=== PATIENT | male | born 1995 | race American Indian/Alaskan Native ===

== ENCOUNTER 2020-03-29 11:06 | Emergency (ER) | payer OTHER ==
[2020-03-29 11:19] VITALS: BP 144/82; PULSE 97
--- NOTE | 2020-03-29 11:36 | EDM.PDOC ---
<Johanny Velazquez - Last Filed: 03/29/20 11:41> ED HPI GENERAL MEDICAL PROBLEM - General Chief Complaint: Chest Pain Stated Complaint: INJURY ON RIBS, RIGHT SIDE Time Seen by Provider: 03/29/20 11:25 Source of Information: Reports: Patient, RN, RN Notes Reviewed History Limitations: Reports: No Limitations - History of Present Illness INITIAL COMMENTS - FREE TEXT/NARRATIVE: pt to ER ambulatory with c/o left rib pain. states he fell onto stairs 3 days ago, which initially knocked the wind out of him. rates pain today 10/14. states he has been taking OTC tylenol without relief. reports after intial injury that he did notice blood in his urine on one occasion. reports that the pain in his ribs causes his pain with a deep breath and he will hear a pop at times. denies PMH/PSH. denies recent illness, fever, n/v/d. Onset Date: 03/26/20 Right Chest Pain Score (Numeric/FACES): 7 - Related Data Allergies Allergy/AdvReac Type Severity Reaction Status Date / Time Penicillins Allergy Cannot Verified 03/29/20 11:19 Remember Home Meds: Home Meds . [No Known Home Meds] 12/31/14 [History] Past Medical History HEENT History: Reports: None Cardiovascular History: Reports: None Respiratory History: Reports: None Gastrointestinal History: Reports: None Genitourinary History: Reports: None Musculoskeletal History: Reports: None Neurological History: Reports: None Psychiatric History: Reports: None Endocrine/Metabolic History: Reports: None Hematologic History: Reports: None Immunologic History: Reports: None Oncologic (Cancer) History: Reports: None Dermatologic History: Reports: None - Infectious Disease History Infectious Disease History: Reports: None - Past Surgical History Head Surgeries/Procedures: Reports: None Social & Family History - Tobacco Use Tobacco Use Status *Q: Current Every Day Tobacco User Years of Tobacco use: 6 Packs/Tins Daily: 0.5 Second Hand Smoke Exposure: No - Caffeine Use Caffeine Use: Reports: Soda - Recreational Drug Use Recreational Drug Use: No ED ROS GENERAL - Review of Systems Review Of Systems: Comprehensive ROS is negative, except as noted in HPI. ED EXAM, GENERAL - Physical Exam Exam: See Below Exam Limited By: No Limitations General Appearance: Alert, WD/WN, No Apparent Distress Eye Exam: Bilateral Eye: EOMI, Normal Inspection Ears: Normal External Exam, Hearing Grossly Normal Nose: Normal Inspection Throat/Mouth: Normal Inspection Head: Atraumatic, Normocephalic Neck: Normal Inspection, Non-Tender, Full Range of Motion Respiratory/Chest: No Respiratory Distress, Lungs Clear, Normal Breath Sounds. No: Chest Non-Tender (reports pain 7/10 to left ribs) Cardiovascular: Normal Peripheral Pulses, Regular Rate, Rhythm, No Edema, No Murmur GI/Abdominal: Normal Bowel Sounds, Soft, Non-Tender (Male) Exam: Deferred Rectal (Males) Exam: Deferred Back Exam: Normal Inspection, Full Range of Motion. No: CVA Tenderness (L), CVA Tenderness (R) Extremities: Normal Inspection, Normal Range of Motion, Non-Tender, No Pedal Edema Neurological: Alert, Oriented, Normal Cognition Psychiatric: Normal Affect, Normal Mood Skin Exam: Warm, Dry, Intact, Normal Color, No Rash, Other (tattoos) Lymphatic: No Adenopathy Course - Re-Assessments/Exams Free Text/Narrative Re-Assessment/Exam: 03/29/20 11:38 pt is asked to give urine sample and then will go to xray. pt asks how long he will be here because he has to be at work at 1 pm and does not want to wait. informed pt he will be here for at least an hour. pt states he is leaving and may come back later. Departure - Departure Time of Disposition: 11:40 Disposition: Against Medical Advice 07 Clinical Impression: Rib pain on left side - Discharge Information *PRESCRIPTION DRUG MONITORING PROGRAM REVIEWED*: No *COPY OF PRESCRIPTION DRUG MONITORING REPORT IN PATIENT SHERRILL: No Referrals: PCP,None [Primary Care Provider] - Forms: ED Department Discharge Sepsis Event Note (ED) - Evaluation Sepsis Screening Result: No Definite Risk <Dalia Rich - Last Filed: 03/29/20 14:33> Course - Vital Signs Last Recorded V/S: Last Vital Signs Temp 96.8 F L 03/29/20 11:15 Pulse 97 03/29/20 11:15 Resp 16 03/29/20 11:15 BP 144/82 H 03/29/20 11:15 Pulse Ox 100 03/29/20 11:15 - Re-Assessments/Exams Free Text/Narrative Re-Assessment/Exam: 03/29/20 14:33 I personally performed or re-performed the physical examination and medical decision making. I have verified all student documentation or findings, including history, physical exam and/or medical decision making. Sepsis Event Note (ED) - Focused Exam Vital Signs: Vital Signs Temp Pulse Resp BP Pulse Ox 03/29/20 11:15 96.8 F L 97 16 144/82 H 100
== END 2020-03-29 11:38 | disposition left against medical advice (07) ==
LOC: DL.ED 11:06
DX: R07.81 Pleurodynia (principal); L81.8 Other specified disorders of pigmentation; F17.210 Nicotine dependence, cigarettes, uncomplicated; Z88.0 Allergy status to penicillin
CPT/HCPCS: 99283

== ENCOUNTER 2023-11-03 08:23 | Emergency (ER) | payer OTHER ==
[2023-11-03 08:50] VITALS: BP 127/83; PULSE 91
[2023-11-03] MEDS: Lidocaine 1% 30 ML SDV INJECT ONE (08:51)
[2023-11-03] MEDS: Lidocaine 1% 30 ML SDV ONE (08:51)
[2023-11-03] MEDS ORDERED: Bacitracin Oint 1 GM U/D Packet ONE (08:52)
== END 2023-11-03 08:58 | disposition home or self-care (01) ==
LOC: DL.ED 08:23
DX: S01.412A Laceration without foreign body of left cheek and temporomandibular area, initial encounter (principal); Z88.0 Allergy status to penicillin; Z87.891 Personal history of nicotine dependence; W22.8XXA Striking against or struck by other objects, initial encounter
CPT/HCPCS: 12013; 99282; J3490